=== PATIENT | male | born 1990 | race Caucasian/White ===

== ENCOUNTER → 2021-08-17 | Outpatient (CLI) | LOC: M SOG 09:08 | PROVIDERS: ATTEND Orthopaedic Surgery Hand Surgery | DX: M25.532 Pain in left wrist (principal) ==

== ENCOUNTER → 2021-09-28 | Outpatient (CLI) | payer OTHER ==
[~2021-09-28] MED LIST: ISOVUE-300 61% 50ML VIAL As Ordered ONE; LIDOCAINE 1% MDV 20ML VIAL As Ordered ONE; PROHANCE 279.3MG/ML 5ML VIAL As Ordered ONE
== END ==
LOC: M RADPRO 06:04
PROVIDERS: ATTEND Orthopaedic Surgery Hand Surgery
DX: R93.7 Abnormal findings on diagnostic imaging of other parts of musculoskeletal system (principal); M25.532 Pain in left wrist
CPT/HCPCS: 25246; 73223; 77002; A9576; Q9967

== ENCOUNTER → 2022-03-08 | Outpatient (CLI) | payer OTHER ==
[2022-03-08 14:13] LABS: PLATELET COUNT, AUTOMATED 227 10^3/uL (150-450)
[2022-03-08 14:25] LABS: INR 0.9; PARTIAL THROMBOPLASTIN TIME 27.7 SECONDS (25.9-37.0); PROTHROMBIN TIME 12.6 SECONDS (12.7-14.5)
== END ==
LOC: M LAB 13:39
PROVIDERS: ATTEND Physical Medicine & Rehabilitation
DX: M47.896 Other spondylosis, lumbar region (principal)

== ENCOUNTER → 2022-09-29 | Outpatient (REF) | LOC: M PLAIMG 09:59 | PROVIDERS: ATTEND Internal Medicine | DX: R06.02 Shortness of breath (principal); M79.609 Pain in unspecified limb; Q76.0 Spina bifida occulta ==